=== PATIENT | female | born 1990 | race Hispanic/Latino ===

== ENCOUNTER 2017-04-10 17:08 | Emergency (ER) | payer SELFPAY ==
--- NOTE | 2017-04-10 18:03 | RAD ---
PROCEDURE: CHEST RADIOGRAPH, 1 VIEW portable study 17:35. HISTORY: Detox/Psy COMPARISON: None available. FINDINGS: LUNGS: Clear. PLEURA: No pneumothorax or pleural fluid seen. CARDIOVASCULAR: Normal. OSSEOUS STRUCTURES: No significant abnormalities. VISUALIZED UPPER ABDOMEN: Normal. OTHER FINDINGS: None. IMPRESSION: No active disease.
[2017-04-10 18:05] LABS: BASO % 0.6 % (0.0-2.0); EOS % 0.5 % (0.0-4.0); HEMATOCRIT 46.2 % (34.0-47.0); LYMPH # 1.4 K/uL (1.0-4.3); LYMPH % 18.7 % (20.0-40.0); MEAN CELL VOLUME 85.7 fL (81.0-99.0); MEAN CORPUSCULAR HEMOGLOBIN 29.4 pg (27.0-31.0); MEAN CORPUSCULAR HGB CONC 34.3 g/dL (33.0-37.0); MEAN PLATELET VOLUME 8.3 fL (7.2-11.7); MONO # 0.5 K/uL (0.0-0.8); MONO % 6.4 % (0.0-10.0); NRBC % 0.1 % (0.0-2.0); WHITE BLOOD COUNT 7.4 K/uL (4.8-10.8)
[2017-04-10 18:13] LABS: CHLORIDE 99 mmol/L (98-107); SODIUM 137 mmol/L (132-148)
[2017-04-10 18:14] LABS: POTASSIUM 3.2 mmol/L (3.6-5.2)
[2017-04-10 18:16] LABS: ALB/GLOB RATIO 1.5 (1.0-2.1); ALKALINE PHOSPHATASE 60 U/L (38-126); ALT/SGPT 13 U/L (9-52); AST/SGOT 23 U/L (14-36); BILIRUBIN,TOTAL 1.2 mg/dL (0.2-1.3); BLOOD UREA NITROGEN 8 mg/dL (7-17); CALCIUM 9.1 mg/dl (8.6-10.4); CARBON DIOXIDE 24 mmol/L (22-30); GFR AFRICAN-AMERICAN > 60; GLUCOSE,RANDOM 107 mg/dL (65-105); TOTAL PROTEIN 7.7 g/dL (6.3-8.3)
[2017-04-10 18:17] LABS: ALCOHOL SERUM < 10 mg/dl (0-10)
--- NOTE | 2017-04-10 18:45 | C.PDOC ---
History Of Present Illness Christiane Stockton brought in by EMS found sleeping in a box. Pt bizarre, unable to answer questions, ambulating nonsensically, occasional foul mouth. Pt denies substance abuse today. History limited due to patient condition. Time Seen by Provider: 04/10/17 17:23 Chief Complaint (Nursing): Psychiatric Evaluation History Per: Patient Suicide/Self Injury Attempted (Context): None Severity: Mild Involuntary Hold By: None Recent travel outside of the [place]: No Past Medical History Reviewed: Historical Data, Nursing Documentation, Vital Signs Vital Signs: Last Vital Signs Temp 98.1 F 04/10/17 17:10 Pulse 77 04/10/17 20:42 Resp 18 04/10/17 20:42 BP 134/87 04/10/17 20:42 Pulse Ox 100 04/11/17 00:29 Family History: States: Unknown Family Hx - Social History Hx Alcohol Use: No Hx Substance Use: No Review Of Systems Review Of Systems: ROS cannot be obtained secondary to pt's inabilty to answer questions. Physical Exam - Physical Exam Appears: Non-toxic, Other (Thin, no alcohol on breath, bizarre affect, long discheveled hair. poor eye contact) Skin: Warm, Dry, No Rash Head: Atraumatic, Normacephalic Eye(s): bilateral: PERRL Neck: Normal, Normal ROM, Supple Chest: Symmetrical Cardiovascular: Rhythm Regular, No Murmur Respiratory: Normal Breath Sounds, No Rales, No Rhonchi, No Wheezing Gastrointestinal/Abdominal: Normal Exam, Soft, No Tenderness Extremity: Bilateral: Atraumatic ED Course And Treatment - Laboratory Results Result Diagrams: 04/10/17 18:02 04/10/17 18:02 Lab Interpretation: Normal (tox/etoh/ua neg.) Urine POC: Negative ECG: Interpreted By Me ECG Rhythm: Sinus Rhythm ECG Interpretation: Normal Rate From EC O2 Sat by Pulse Oximetry: 100 (room air) Pulse Ox Interpretation: Normal - Radiology CXR: Interpreted by Me, Viewed By Me CXR Interpretation: Yes: No Acute Disease Progress Note: Plan: CT head, EKG, labs, CXR, UA, drug screen Reevaluation Time: 00:27 Reassessment Condition: Improved (eating donuts and coffee, cooperative, but still bizarre) Medical Decision Making Medical Decision Makin: medically cleared for inpatient psych eval cxr and ekg wnl. 0030: baseline psych vs substance abuse not detected in our UDS pending [facility] [place] [facility] screening. Disposition - Disposition Disposition Time: 01:00 Condition: GOOD - Clinical Impression Clinical Impression: Schizophrenia - Scribe Statement The provider has reviewed the documentation as recorded by the Scribe Jesús Perkins Provider Attestation: All medical record entries made by the Scribe were at my direction and personally dictated by me. I have reviewed the chart and agree that the record accurately reflects my personal performance of the history, physical exam, medical decision making, and the department course for this patient. I have also personally directed, reviewed, and agree with the discharge instructions and disposition. Physician Patient Turnover Patient Signed Over To: Bret Acosta Handoff Comments: pending [facility] [place] screening.
[2017-04-10 19:55] LABS: RBC URINE 2 /hpf (0-3); URINE BILIRUBIN NEGATIVE (NEGATIVE); URINE BLOOD NEGATIVE (NEGATIVE); URINE GLUCOSE (UA) NORMAL (Normal); URINE KETONE 2+ mg/dL (NEGATIVE); URINE LEUKOCYTE ESTERASE NEG Leu/uL (Negative); URINE PROTEIN 1+ mg/dL (NEGATIVE); WBC URINE 3 /hpf (0-5)
[2017-04-10 19:58] LABS: URINE COLOR YELLOW (YELLOW)
[2017-04-11] MEDS ORDERED: Potassium Chloride 20 mEq/15 ml LIQ UD PO STA (01:02)
[2017-04-11] MEDS ORDERED: Potassium Chloride 20 mEq ER Tab PO ONE (01:24)
[2017-04-11 04:50] LABS: CHLORIDE 101 mmol/L (98-107); POTASSIUM 3.7 mmol/L (3.6-5.2); SODIUM 137 mmol/L (132-148)
[2017-04-11 04:53] LABS: CARBON DIOXIDE 26 mmol/L (22-30); GFR AFRICAN-AMERICAN > 60
[2017-04-11 04:54] LABS: BLOOD UREA NITROGEN 11 mg/dL (7-17); CALCIUM 8.8 mg/dl (8.6-10.4); GLUCOSE,RANDOM 120 mg/dL (65-105)
[2017-04-11 06:30] VITALS: BP 128/88; PULSE 93; RESP 18; TEMP 98.4; O2SAT 98
--- NOTE | 2017-04-11 10:31 | CT ---
PROCEDURE: CT HEAD WITHOUT CONTRAST. HISTORY: change of MS, ? intox COMPARISON: None available. TECHNIQUE: Axial computed tomography images were obtained through the head/brain without intravenous contrast. Radiation dose: Total exam DLP = 834.02 mGy-cm. This CT exam was performed using one or more of the following dose reduction techniques: Automated exposure control, adjustment of the mA and/or kV according to patient size, and/or use of iterative reconstruction technique. FINDINGS: HEMORRHAGE: No acute parenchymal, subarachnoid or extra-axial hemorrhage. BRAIN: No mass effect or edema. No atrophy or chronic microvascular ischemic changes. VENTRICLES: No evidence of obstructive hydrocephalus however the ventricles are mildly prominent CALVARIUM: No acute calvarial fractures. 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 PARANASAL SINUSES: Unremarkable as visualized. No significant inflammatory changes. MASTOID AIR CELLS: Unremarkable as visualized. No inflammatory changes. OTHER FINDINGS: None. IMPRESSION: No acute intracranial hemorrhage. Mildly prominent ventricles. No evidence of obstructive type hydrocephalus
--- NOTE | 2017-04-13 13:17 | CARD ---
APPROVED REPORT EKG Measurement Heart [id number] <Conclusion> Sinus rhythm with sinus arrhythmia with short TX Otherwise normal ECG
== END 2017-04-11 07:05 | disposition home or self-care (01) ==
LOC: C.ER 17:08
DX: F20.9 Schizophrenia, unspecified (principal); E87.6 Hypokalemia
CPT/HCPCS: 36415; 70450; 71010; 80048; 80053; 81001; 84703; 85025; 93005; 99285; G0480